=== PATIENT | female | born 1975 | race Caucasian/White ===

== ENCOUNTER 2021-09-15 06:58 | Emergency (ER) | payer OTHER, SELFPAY ==
--- NOTE | ~2021-09-15 | XR_ITS ---
EXAMINATION: XR FINGER, RIGHT CLINICAL INFORMATION: Fourth digit crush injury with laceration. COMPARISON: None TECHNIQUE: 3 views of the right fourth digit. FINDINGS: The bones and soft tissues are normal. No fracture. Alignment is anatomic. Joint spaces are maintained. XR/XR finger RT min 2V IMPRESSION: Unremarkable fourth digit exam.
[2021-09-15 07:00] VITALS: BP 115/70; PULSE 73; RESP 15; TEMP 36.6; BMI 26.9
[2021-09-15] MEDS: Lidocaine HCl 1 % MPF 5 ML VIAL SUBCUT (07:50)
--- NOTE | 2021-09-15 08:17 | ED.EXTPRO ---
HPI - Extremity Problem General Chief complaint: Extremity Injury, Upper Stated complaint: finger injury Time Seen by Provider: 09/15/21 07:10 Source: patient Mode of arrival: ambulatory Limitations: no limitations History of Present Illness MD Complaint: other (crush injury ) Onset (ago): day(s) (1 yesterday AM) Pain Consistency: constant Location: right and upper extremity (4th finger) Quality: aching Radiation: none Relieving factors: nothing Exacerbating factors: palpation Associated symptoms: denies other symptoms Context: other (crush injury in door) Related Data Previous Rx's Medication Instructions Recorded cephalexin 500 mg capsule 500 mg PO TID 7 Days #21 cap 09/15/21 Allergies Allergy/AdvReac Type Severity Reaction Status Date / Time Unable to Assess Allergy Verified 09/15/21 07:22 Review of Systems Review of Systems: Constitutional : No Fever, No Chills, Cardiovascular : No Chest Pain, No SOB Respiratory : No Dyspnea Gastrointestinal : No abdominal pain Musculoskeletal : No Joint Swelling Skin : No rash, positive skin laceration Neuro : No Weakness, No Numbness Psych : No SI/HI PMFSH Past Medical History Attestation statement: The following information was validated with the patient. Medical History (Updated 09/15/21 @ 08:22 by Jeannette Camacho DO) No known health problems Surgical History (Updated 09/15/21 @ 07:03 by Omari Gibson) H/O tubal ligation Social History Social History (Updated 09/15/21 @ 08:22 by Jeannette Camacho DO) Patient Tobacco Use Status: Never used Tobacco Advance Directives: No Patient : No Physical Exam Vital Signs: Vital Signs: Last Vital Signs Temp 98 F 09/15/21 07:00 Pulse 73 09/15/21 07:00 Resp 15 09/15/21 07:00 BP 115/70 09/15/21 07:00 Body Mass Index 26.9 Appearance: Alert. Oriented X3. No acute distress. Eyes: Pupils equal, round and reactive to light. ENT: Pharynx normal. Neck: Normal inspection. CVS: Pulses normal. Respiratory: No respiratory distress. Abdomen: atraumatic Skin: Skin warm and dry. Normal skin color. Extremities: No lower extremity edema. R 4th finger on tip at pad - approximated old appearing avulsion 1cm NV intact distally - no bleeding noted no signs of infection Neuro: Oriented X 3. No motor deficit. No sensory deficit. MDM - Extremity (Nontraumatic) MDM Narrative Medical decision making narrative: 45 yo female crush injury to R 4th finger in door - yesterday AM - at this time wound is closed will obtain xray and covered with dermabond as the area is already approximated at this time, NV intact. given old injury and the flap discussed wound precautions and will start on keflex Procedures Laceration Laceration 1: Site: hand (4th finger) Side (If applicable): right Size (cm): 1 Description: flap Depth: simple, single layer Pre-repair: wound explored Skin layer closed with: other (dermabond) Nerve Block Nerve Block 1: Time out performed: Yes Local Anesthetic: lidocaine 1% Amount of anesthesia used (mL): 3 Side: right Nerve Blocks: digital Procedure Successful: Yes Patient Tolerated Procedure: well and no complications Complications: none Discharge Plan Discharge Clinical Impression: Crush injury, Avulsion of skin Patient Disposition: Home, Self-Care Instructions: Skin Avulsion (ED), Skin Adhesive Care (ED), Crush Injury (ED) Additional Instructions: return to ED for any worsening symptoms or concerns no washing dishes glue will fall off in 5 days monitor for swelling redness yellow drainage Prescriptions: New cephalexin 500 mg capsule 500 mg PO TID 7 Days Qty: 21 RF: 0 Stand Alone Forms: Work/School Release
== END 2021-09-15 08:27 | disposition home or self-care (01) ==
PROVIDERS: Emergency Provider Emergency Medicine; PCP Family Medicine
DX: S61.204A Unspecified open wound of right ring finger without damage to nail, initial encounter (principal); W23.1XXA Caught, crushed, jammed, or pinched between stationary objects, initial encounter; Y93.9 Activity, unspecified; Y92.9 Unspecified place or not applicable; Y99.9 Unspecified external cause status
CPT/HCPCS: 12001; 73140; 99283; 99284

== ENCOUNTER 2022-03-13 14:17 | Outpatient (REF) | payer OTHER, SELFPAY ==
[2022-03-13 14:39] LABS: MANUAL DIFF FLAG NO
[2022-03-13 14:56] LABS: Basophils Absolute Auto 0.1 X10*3/uL (0.0-0.2); Basophils Percent Auto 0.6 % (0-2); Eosinophils Absolute Auto 0.2 X10*3/uL (0.0-0.4); Eosinophils Percent Auto 2.5 % (0-4); Hematocrit 41.3 % (37.0-47.0); Hemoglobin 13.3 g/dl (12.0-16.0); Imm Gran Abs Auto 0.08 X10*3/uL (0.00-0.03); Lymphocytes Absolute Auto 2.3 X10*3/uL (1.2-4.9); Lymphocytes Percent Auto 27.5 % (20-40); Mean Corpuscular HGB Conc 32.2 g/dl (31.0-35.0); Mean Corpuscular Hemoglobin 30.3 pg (27.0-33.0); Mean Corpuscular Volume 94.1 fL (80.0-98.0); Mean Platelet Volume 10.3 fL (9.4-12.3); Monocytes Absolute Auto 0.6 X10*3/uL (0.1-1.2); Monocytes Percent Auto 6.8 % (2-11); Neutrophils Absolute Auto 5.1 x10*3/uL (2.0-8.3); Neutrophils Percent Auto 61.6 % (45-73); Platelet Count 289 X10*3/uL (160-400); Red Blood Count 4.39 X10*6/uL (4.20-5.50); Red Cell Distribution Width 12.2 % (11.0-16.0); White Blood Count 8.3 X10*3/uL (4.8-10.8)
[2022-03-13 15:29] LABS: Alanine Aminotransferase 9 U/L (0-31); Albumin Level 4.1 g/dL (3.5-5.0); Alkaline Phosphatase 48 U/L (39-117); Anion Gap 10 (12-20); Aspartate Amino Transferase 13 U/L (5-31); Bilirubin Total 0.4 mg/dL (0.0-1.0); Blood Urea Nitrogen 7 mg/dL (9-16); Calcium 9.2 mg/dL (8.4-10.2); Carbon Dioxide 27 mmol/L (22-29); Chloride 107 mmol/L (96-108); Cholesterol 148 mg/dL; Estimated Glomerular Filt Rate > 60; Glucose Random 79 mg/dL (60-115); HDL Cholesterol 44 mg/dL; LDL Cholesterol Calculated 97 mg/dl; Potassium 4.5 mmol/L (3.3-5.1); Sodium 139 mmol/L (135-145); Total Protein 6.7 g/dL (6.5-8.0); Triglycerides 38 mg/dL
[2022-03-13 15:42] LABS: Thyroid Stimulating Hormone 0.77 uIU/mL (0.32-4.0)
== END 2022-03-13 14:18 | disposition home or self-care (01) ==
LOC: HO.LAB 14:17
PROVIDERS: PCP Internal Medicine; Visit Provider Internal Medicine
DX: Z00.00 Encounter for general adult medical examination without abnormal findings (principal); F32.9 Major depressive disorder, single episode, unspecified; I83.90 Asymptomatic varicose veins of unspecified lower extremity
CPT/HCPCS: 36415; 80053; 80061; 84443; 85025

== ENCOUNTER → 2022-10-25 10:56 | Outpatient (BNVA) | payer OTHER, SELFPAY | PROVIDERS: PCP Internal Medicine; Visit Provider Surgery Vascular Surgery | DX: Z13.89 Encounter for screening for other disorder (principal) ==

== ENCOUNTER 2022-11-27 09:26 | Outpatient (REF) | payer OTHER, SELFPAY ==
--- NOTE | ~2022-11-27 | US_ITS ---
EXAMINATION: NONINVASIVE ASSESSMENT OF THE ARTERIES OF BOTH LOWER EXTREMITIES WITH PVR EXAM AND BILATERAL LOWER EXTREMITY DUPLEX Nena Cervantes MD CLINICAL INFORMATION: Peripheral arterial disease TECHNIQUE: Ankle pulse volume recordings, ankle pressure measurements and ankle brachial indices were obtained of the lower extremity arterial system bilaterally in addition to duplex Doppler techniques with wave form analysis and measurement of velocities in the common femoral, profunda femoral, superficial femoral, popliteal and tibial arteries. The study was performed only at rest. COMPARISON: None FINDINGS: a) AT REST: RIGHT LE. The right ankle-brachial index is: 1.18 * >0.97-1.25 = normal - no significant arterial disease * 0.75-0.96 = mild peripheral arterial disease * 0.5-0.74 = moderate peripheral arterial disease * <0.50 = severe peripheral arterial disease 2. Right ankle pressure: normal. 3. Right ankle PVR waveform: normal. 4. Right direct duplex Doppler findings: Common femoral artery: 153 cm/s, Multiphasic Profunda femoris artery: 90 cm/s, Multiphasic Superficial femoral artery (proximal): 89 cm/s, Multiphasic Superficial femoral artery (mid): 116 cm/s, Multiphasic Superficial femoral artery (distal): 79 cm/s, Multiphasic Proximal Popliteal artery: 59 cm/s, Multiphasic Mid posterior tibial artery: 56 cm/s, Multiphasic LEFT LE. The left ankle-brachial index is: 1.17 * >0.97-1.25 = normal - no significant arterial disease * 0.75-0.96 = mild peripheral arterial disease * 0.5-0.74 = moderate peripheral arterial disease * <0.50 = severe peripheral arterial disease 2. Left ankle pressure: normal. 3. Left ankle PVR waveform: normal. 4. Left direct duplex Doppler findings: Common femoral artery: 181 cm/s, Multiphasic Profunda femoris artery: 85 cm/s, Multiphasic Superficial femoral artery (proximal): 111 cm/s, Multiphasic Superficial femoral artery (mid): 103 cm/s, Multiphasic Superficial femoral artery (distal): 68 cm/s, Multiphasic Proximal Popliteal artery: 52 cm/s, Multiphasic Mid posterior tibial artery: 45 cm/s, Multiphasic US/US HEATHER complete IMPRESSION: There is no evidence of any hemodynamically significant lower extremity arterial disease by pressure, waveform or duplex Doppler criteria at rest.
--- NOTE | ~2022-11-27 | US_ITS ---
EXAMINATION: NONINVASIVE ASSESSMENT OF THE ARTERIES OF BOTH LOWER EXTREMITIES WITH PVR EXAM AND BILATERAL LOWER EXTREMITY DUPLEX Nena Cervantes MD CLINICAL INFORMATION: Peripheral arterial disease TECHNIQUE: Ankle pulse volume recordings, ankle pressure measurements and ankle brachial indices were obtained of the lower extremity arterial system bilaterally in addition to duplex Doppler techniques with wave form analysis and measurement of velocities in the common femoral, profunda femoral, superficial femoral, popliteal and tibial arteries. The study was performed only at rest. COMPARISON: None FINDINGS: a) AT REST: RIGHT LE. The right ankle-brachial index is: 1.18 * >0.97-1.25 = normal - no significant arterial disease * 0.75-0.96 = mild peripheral arterial disease * 0.5-0.74 = moderate peripheral arterial disease * <0.50 = severe peripheral arterial disease 2. Right ankle pressure: normal. 3. Right ankle PVR waveform: normal. 4. Right direct duplex Doppler findings: Common femoral artery: 153 cm/s, Multiphasic Profunda femoris artery: 90 cm/s, Multiphasic Superficial femoral artery (proximal): 89 cm/s, Multiphasic Superficial femoral artery (mid): 116 cm/s, Multiphasic Superficial femoral artery (distal): 79 cm/s, Multiphasic Proximal Popliteal artery: 59 cm/s, Multiphasic Mid posterior tibial artery: 56 cm/s, Multiphasic LEFT LE. The left ankle-brachial index is: 1.17 * >0.97-1.25 = normal - no significant arterial disease * 0.75-0.96 = mild peripheral arterial disease * 0.5-0.74 = moderate peripheral arterial disease * <0.50 = severe peripheral arterial disease 2. Left ankle pressure: normal. 3. Left ankle PVR waveform: normal. 4. Left direct duplex Doppler findings: Common femoral artery: 181 cm/s, Multiphasic Profunda femoris artery: 85 cm/s, Multiphasic Superficial femoral artery (proximal): 111 cm/s, Multiphasic Superficial femoral artery (mid): 103 cm/s, Multiphasic Superficial femoral artery (distal): 68 cm/s, Multiphasic Proximal Popliteal artery: 52 cm/s, Multiphasic Mid posterior tibial artery: 45 cm/s, Multiphasic US/US arterial duplex LE BI IMPRESSION: There is no evidence of any hemodynamically significant lower extremity arterial disease by pressure, waveform or duplex Doppler criteria at rest.
--- NOTE | ~2022-11-27 | US_ITS ---
EXAMINATION: US LOWER EXTREMITY VENOUS (REFLUX EXAM), BILATERAL CLINICAL INDICATION: Varicose veins COMPARISON: None. TECHNIQUE: Color flow triplex imaging and compression Doppler was performed to evaluate both the deep and the superficial systems bilaterally. To evaluate the superficial system, the examination was performed in the upright position. Color-flow Doppler ultrasound and compression ultrasound were utilized. In addition, maneuvers were utilized to demonstrate reflux. FINDINGS: 1. DEEP VENOUS ULTRASOUND OF THE RIGHT LOWER EXTREMITY: Common Femoral Vein: Compressible, normal respiratory variation and augmented flow. Femoral Vein: Compressible, normal color flow and augmentation. Popliteal Vein: Compressible, normal augmentation. Deep Reflux: There is no evidence of reflux in the deep system in either the common femoral vein or the popliteal vein. There is no evidence of a Aj's cyst. 2. SUPERFICIAL ULTRASOUND WITH DOPPLER OF RIGHT LOWER EXTREMITY: GREAT SAPHENOUS VEIN: Saphenofemoral Junction: 0.7 cm; Reflux: 0 ms Proximal Thigh: 0.5 cm; Reflux: 0 ms Mid Thigh: 0.2 cm; Reflux: 0 ms Above Knee: 0.2 cm; Reflux: 0 ms At Knee: 0.3 cm; Reflux: 0 ms Below Knee: 0.2 cm; Reflux: 0 ms Mid Calf: 0.2 cm; Reflux: 0 ms Ankle: 0.3 cm; Reflux: 0 ms DUPLICATED MEDIAL GREAT SAPHENOUS VEIN: Diameter: None Imaged Reflux: NA DUPLICATED LATERAL GREAT SAPHENOUS VEIN: Proximal: 0.3 cm; Reflux: 0 ms Distal: 0.2 cm; Reflux: 0 ms SMALL SAPHENOUS VEIN: Proximal: 0.2 cm; Reflux: 0 ms Distal: 0.2 cm; Reflux: 0 ms VEIN OF GIACOMINI: None Imaged. PERFORATORS: Location: Right great saphenous vein mid thigh Size: 0.2 cm Reflux: NA VARICOSITIES: Location: Right anterior calf Size: 0.2 cm Reflux: 836 ms 3. DEEP VENOUS ULTRASOUND OF THE LEFT LOWER EXTREMITY: Common Femoral Vein: Compressible, normal respiratory variation and augmented flow. Femoral Vein: Compressible, normal color flow and augmentation. Popliteal Vein: Compressible, normal augmentation. Deep Reflux: There is no evidence of reflux in the deep system in either the common femoral vein or the popliteal vein. There is no evidence of a Aj's cyst. 4. SUPERFICIAL ULTRASOUND WITH DOPPLER OF LEFT LOWER EXTREMITY: GREAT SAPHENOUS VEIN: Saphenofemoral Junction: 0.7 cm; Reflux: 0 ms Proximal Thigh: 0.4 cm; Reflux: 0 ms Mid Thigh: 0.2 cm; Reflux: 0 ms Above Knee: 0.3 cm; Reflux: 0 ms At Knee: 0.3 cm; Reflux: 546 ms Below Knee: 0.2 cm; Reflux: 0 ms Mid Calf: 0.2 cm; Reflux: 0 ms Ankle: 0.2 cm; Reflux: 0 ms DUPLICATED MEDIAL GREAT SAPHENOUS VEIN: Diameter: None Imaged Reflux: NA DUPLICATED LATERAL GREAT SAPHENOUS VEIN: Proximal: 0.6 cm; Reflux: 0 ms Distal: 0.3 cm; Reflux: 0 ms SMALL SAPHENOUS VEIN: Diameter: None Imaged Reflux: NA VEIN OF GIACOMINI: None Imaged. PERFORATORS: Location: Left great saphenous vein in the proximal and distal calf Size: 0.2-0.3 cm Reflux: NA VARICOSITIES: Location: Left great saphenous vein at the knee Size: 0.3 cm Reflux: NA US/US venous duplex LE BI IMPRESSION: 1. No DVT in the bilateral lower extremity. 2. No reflux in the bilateral great saphenous veins. 3. Bilateral refluxing varicosities.
== END 2022-11-27 09:27 | disposition home or self-care (01) ==
LOC: HO.US 09:26
PROVIDERS: PCP Internal Medicine; Visit Provider Surgery Vascular Surgery
DX: I83.11 Varicose veins of right lower extremity with inflammation (principal); I83.893 Varicose veins of bilateral lower extremities with other complications; I70.213 Atherosclerosis of native arteries of extremities with intermittent claudication, bilateral legs
CPT/HCPCS: 93923; 93925; 93970

== ENCOUNTER → 2022-12-04 15:37 | Outpatient (BNVA) | payer OTHER, SELFPAY | PROVIDERS: PCP Internal Medicine; Visit Provider Surgery Vascular Surgery | DX: Z13.89 Encounter for screening for other disorder (principal) ==

== ENCOUNTER 2023-04-04 10:53 | Outpatient (REF) | payer OTHER, SELFPAY ==
[2023-04-04 11:05] LABS: MANUAL DIFF FLAG NO
[2023-04-04 11:37] LABS: Basophils Absolute Auto 0.1 X10*3/uL (0.0-0.2); Basophils Percent Auto 0.8 % (0-2); Eosinophils Absolute Auto 0.1 X10*3/uL (0.0-0.4); Eosinophils Percent Auto 1.6 % (0-4); Hemoglobin 13.9 g/dl (12.0-16.0); Imm Gran Pct Auto 1.2 % (0.0-0.4); Lymphocytes Absolute Auto 2.2 X10*3/uL (1.2-4.9); Lymphocytes Percent Auto 26.6 % (20-40); Mean Corpuscular HGB Conc 33.1 g/dl (31.0-35.0); Mean Corpuscular Volume 93.8 fL (80.0-98.0); Mean Platelet Volume 10.5 fL (9.4-12.3); Monocytes Absolute Auto 0.6 X10*3/uL (0.1-1.2); Neutrophils Absolute Auto 5.2 x10*3/uL (2.0-8.3); Neutrophils Percent Auto 62.8 % (45-73); Platelet Count 338 X10*3/uL (160-400); Red Blood Count 4.48 X10*6/uL (4.20-5.50); Red Cell Distribution Width 12.2 % (11.0-16.0); White Blood Count 8.3 X10*3/uL (4.8-10.8)
[2023-04-04 12:01] LABS: Alanine Aminotransferase 8 U/L (0-31); Albumin Level 4.1 g/dL (3.5-5.0); Alkaline Phosphatase 48 U/L (39-117); Anion Gap 10 (12-20); Aspartate Amino Transferase 13 U/L (5-31); Bilirubin Total 0.5 mg/dL (0.0-1.0); Blood Urea Nitrogen 9 mg/dL (9-16); Calcium 9.2 mg/dL (8.4-10.2); Carbon Dioxide 27 mmol/L (22-29); Chloride 107 mmol/L (96-108); Cholesterol 157 mg/dL; Estimated Glomerular Filt Rate > 60; Glucose Random 85 mg/dL (60-115); HDL Cholesterol 46 mg/dL; LDL Cholesterol Calculated 103 mg/dl; Potassium 4.1 mmol/L (3.3-5.1); Sodium 140 mmol/L (135-145); Total Protein 6.9 g/dL (6.5-8.0); Triglycerides 41 mg/dL
== END 2023-04-04 10:54 | disposition home or self-care (01) ==
LOC: HO.LAB 10:53
PROVIDERS: PCP Internal Medicine; Visit Provider Internal Medicine
DX: Z00.00 Encounter for general adult medical examination without abnormal findings (principal); M70.61 Trochanteric bursitis, right hip; K52.9 Noninfective gastroenteritis and colitis, unspecified; K21.9 Gastro-esophageal reflux disease without esophagitis; I83.813 Varicose veins of bilateral lower extremities with pain; E78.00 Pure hypercholesterolemia, unspecified
CPT/HCPCS: 36415; 80053; 80061; 85025

== ENCOUNTER 2023-05-29 08:27 | Outpatient (REF) | payer OTHER, SELFPAY ==
--- NOTE | ~2023-05-29 | MM_ITS ---
EXAMINATION: MM SCREENING DIGITAL BREAST TOMOSYNTHESIS, BILATERAL CLINICAL INFORMATION: Screening. Asymptomatic. The lifetime risk of breast cancer based on the Tyrer-Cuzick Model is 7.1%. COMPARISON: Mammography: None. Baseline exam. TECHNIQUE: Digital breast tomosynthesis is performed in both the craniocaudal and mediolateral oblique views along with computer-aided detection (CAD). Synthesized 2D images are generated from the tomosynthesis. FINDINGS: The breasts are heterogeneously dense, which may obscure small masses (ACR BI-RADS breast composition Category c). There are oval intramammary lymph nodes in the medial outer bilateral breasts. These are benign. In the left breast, there is a focal asymmetry in the central upper breast, middle one third, for which spot compression views are recommended In the right breast, there is a small 1 view asymmetry in the central right breast seen on the cc view only, with no definite MLO correlate. This is likely superimposition artifact of normal tissue. Spot 3-D compression view in the CC projection recommended, with a full-field right ML 3-D view for further evaluation. No additional suspicious abnormalities in either breast. MM/MM tomosynthesis screening BI IMPRESSION: Left breast focal asymmetry central upper breast, middle one third, for which spot compression views are recommended. Right breast, one view asymmetry central right breast on the CC projection, with no MLO correlate. Recommend diagnostic views to include spot 3-D compression view in the CC projection recommended, with a full-field right ML 3-D view for further evaluation. Targeted ultrasounds of either breast advise as per the interpreting radiologist. ASSESSMENT: BI-RADS BI-RADS 0 - Incomplete: Needs additional Imaging. RECOMMENDATION: 1. Additional views of the bilateral breasts 2. Targeted ultrasound if warranted after review of the additional views. 3. Radiology department staff will contact the patient for additional imaging. Additional Imaging required This examination should not preclude the clinical evaluation of a suspicious palpable abnormality.
== END 2023-05-29 08:28 | disposition home or self-care (01) ==
LOC: HO.MAMMO 08:27
PROVIDERS: PCP Internal Medicine; Visit Provider Internal Medicine
DX: Z12.31 Encounter for screening mammogram for malignant neoplasm of breast (principal)
CPT/HCPCS: 77063; 77067

== ENCOUNTER → 2023-05-29 08:30 | Outpatient (BNV) | payer OTHER, SELFPAY | PROVIDERS: PCP Internal Medicine; Visit Provider Radiology Diagnostic Radiology | DX: Z12.31 Encounter for screening mammogram for malignant neoplasm of breast (principal) | CPT/HCPCS: 77063; 77067 ==

== ENCOUNTER 2023-07-10 09:06 | Outpatient (REF) | payer OTHER, SELFPAY ==
--- NOTE | ~2023-07-10 | US_ITS ---
EXAMINATION: MM DIAGNOSTIC DIGITAL BREAST TOMOSYNTHESIS, BILATERAL US BREAST LIMITED, BILATERAL MAMMOGRAPHY: CLINICAL INFORMATION: Follow-up diagnostic exam for focal asymmetry central upper outer left breast, middle one third, and small 1 view asymmetry central right breast seen on CC view only, with no MLO correlate. COMPARISON: Mammography: Baseline screening examination 05/29/2023. TECHNIQUE: Digital bilateral breast tomosynthesis is performed involving right full Field 3-D mediolateral view, 3-D spot compression right CC and MLO views, as well as 3-D left spot compression CC and MLO views, along with computer-aided detection (CAD). Synthesized 2D images are generated from the tomosynthesis. FINDINGS: The breasts are heterogeneously dense, which may obscure small masses (ACR BI-RADS breast composition Category c). RIGHT BREAST: Spot compression view right CC demonstrates a persistent low density 5 mm oval mass, circumscribed, approximately 6 cm from the nipple, without definitive correlate on MLO or ML tomographic views. This will be investigated with ultrasound. No additional suspicious findings right breast. LEFT BREAST: The upper outer left breast focal asymmetry does not persist and dissipates well on spot compression views, consistent with superimposition artifact of normal overlapping glandular tissue. There are no suspicious persistent abnormalities in the left breast. ULTRASOUND: CLINICAL INFORMATION: Evaluate bilateral asymmetric densities as detailed. COMPARISON: Diagnostic mammography dated concurrently, an Baseline screening mammography 05/29/2023. No prior ultrasound. TECHNIQUE: Targeted sonographic evaluation was performed using a high frequency linear transducer. The right breast was scanned spanning the 10:00 to 2:00 axes. The left breast was scanned in the upper outer quadrant. Selected archived documentation. FINDINGS: RIGHT BREAST: There is a mixture of fatty and fibroglandular tissue. No suspicious mass is seen. There is no pathologic acoustic shadowing. There is a small simple cyst in the 12:00 axis, 6 cm from the nipple, measuring 4 x 5 x 2 mm, which correlates well with the abnormality seen on mammography. This is benign. LEFT BREAST: There is a mixture of fatty and fibroglandular tissue. No suspicious mass is seen. There is no pathologic acoustic shadowing. There are no cystic abnormalities. There is no correlate to the asymmetric density seen on mammography in the upper outer quadrant. US/US breast BI limited mamm only IMPRESSION: Benign findings right breast. No abnormality left breast. No findings suspicious for malignancy in either breast. Recommend the patient resume routine annual screening. OVERALL ASSESSMENT: Mammography: BI-RADS 2 - Benign Findings Ultrasound: BI-RADS 2 - Benign Findings RECOMMENDATION: 1 year F/U This patient's information was entered into a reminder system with a target due date for their next mammogram.
== END 2023-07-10 09:07 | disposition home or self-care (01) ==
LOC: HO.MAMMO 09:06
PROVIDERS: PCP Internal Medicine; Visit Provider Internal Medicine
DX: N64.89 Other specified disorders of breast (principal)
CPT/HCPCS: 76642; 77062; 77066

== ENCOUNTER 2023-08-31 07:26 | Outpatient (REF) | payer OTHER, SELFPAY ==
[2023-09-02 12:53] LABS: Immunoglobulin A 94 mg/dL (47-310)
[2023-09-03 13:18] LABS: Gliadin Deamidated IgA Ab <1.0 U/mL; Gliadin Deamidated IgG Ab <1.0 U/mL; Transglutaminase Ab IgG <1.0 U/mL; Transglutaminase IgA <1.0 U/mL
[2023-09-05 12:18] LABS: Endomysial IgA Antibody Negative (Negative)
== END 2023-08-31 07:27 | disposition home or self-care (01) ==
LOC: HO.LAB 07:26
PROVIDERS: PCP Internal Medicine; Visit Provider Internal Medicine
DX: K58.0 Irritable bowel syndrome with diarrhea (principal)
CPT/HCPCS: 36415; 82784; 86231; 86258; 86364

== ENCOUNTER 2023-10-03 07:58 | Outpatient (REF) | payer OTHER, SELFPAY ==
--- NOTE | ~2023-10-03 | US_ITS ---
EXAMINATION: US ABDOMEN COMPLETE CLINICAL INFORMATION: Abdominal pain. COMPARISON: None available. TECHNIQUE: Real-time imaging of the abdominal viscera. FINDINGS: PANCREAS: Unremarkable. ABDOMINAL AORTA: The proximal, mid, and distal segments are normal in caliber. INFERIOR VENA CAVA: Visualized portions are normal. LIVER: Normal. The liver is normal in size. The liver contour is normal. Parenchymal echogenicity is normal. No focal hepatic lesion. There is no intrahepatic biliary duct dilatation seen. GALLBLADDER: Normal. The gallbladder is physiologically distended without evidence of stones, sludge, polyps, wall thickening or pericholecystic fluid. COMMON BILE DUCT: Normal in caliber measuring 0.7 cm in diameter. RIGHT KIDNEY: No hydronephrosis. No renal calculi or focal parenchymal lesions. The kidney measures 11.0 cm in maximum dimension. Incidentally noted extrarenal pelvis. LEFT KIDNEY: Normal. No hydronephrosis. No renal calculi or focal parenchymal lesions. The kidney measures 12.1 cm in maximum dimension. SPLEEN: Normal. The spleen measures 9.8 cm in maximum dimension. FREE FLUID: None. US/US abdomen complete IMPRESSION: No findings to explain symptoms of abdominal pain. No cholelithiasis or evidence of acute cholecystitis.
== END 2023-10-03 07:59 | disposition home or self-care (01) ==
LOC: HO.US 07:58
PROVIDERS: PCP Internal Medicine; Visit Provider Internal Medicine
DX: R10.84 Generalized abdominal pain (principal)
CPT/HCPCS: 76700

== ENCOUNTER 2023-11-21 12:32 | Day surgery (SDC) | payer OTHER, SELFPAY ==
[2023-11-13 14:47] VITALS: BMI 30.1
[2023-11-21 12:56] VITALS: BMI 30.4
[2023-11-21 13:07] VITALS: BP 102/64; PULSE 77; RESP 15; TEMP 37.1; O2SAT 95
--- NOTE | 2023-11-21 13:11 | HO.ANESPROP2 ---
HPI - Anesthesia Eval Consult details Narrative: 48 yo female patient for EGD, Colonoscopy [facility] Active Problems Active Problems: All Active Problems (Updated 11/21/23 @ 13:12 by Cecilia Johnson MD) PAD (peripheral artery disease) (Acute) Varicose veins of right lower extremity with inflammation (Acute) H/o headache, numbness left side, balance, gait issues about a month ago. W/u non-revealing. Still awaiting visit with neurology. Symptoms have since resolved Past Medical History Medical History Neurological symptoms PAD (peripheral artery disease) GERD (gastroesophageal reflux disease) Renal calculi Family History Family history of problems with anesthesia: No Surgical History Surgical History History of tonsillectomy and adenoidectomy History of pubovaginal sling H/O tubal ligation History of Problems with Anesthesia: No Social History Social History Patient Tobacco Use Status: Former Tobacco user Quit Date: 2001 Use of substances other than those prescribed or required for medical reasons: No Are you DNR?: No Advance Directives: No Advance Directives Information Provided: Yes Meds Allergies Allergy/AdvReac Type Severity Reaction Status Date / Time Iodinated Contrast Media Allergy Mild Itching Verified 11/21/23 12:54 [IV Contrast Dye] Active Medications: Current Medications Sodium Biphosphate/Sodium Phosphate (Sodium Phosphate,[place]-Dibasic 133 Ml Enema) 133 ml [place] ONCE PRN PRN Reason: Poor Colonoscopy Prep Results Home Medications Medication Instructions Recorded Confirmed Last Taken Type No Known Home Meds 11/21/23 11/21/23 Unknown History Exam Height,Weight and Vital Signs: Height 5 ft 5 in Weight 83.007 kg Vital Signs Temp Pulse Resp BP Pulse Ox O2 Del Method 11/21/23 13:07 98.7 F 77 15 102/64 95 Room Air Airway Mallampati Class: III (Small mouth) TM Dist: >3cm Neck ROM: Full Loose/Missing/Broken Teeth: No (Denies broken, loose, missing teeth) Heart: RRR Lungs: CTAB Assessment and Plan Assessment Anesthesia Assessment: Anesthesia Plan Discussed and Chart Reviewed Final Anesthetic Review Family History of Problems with Anesthesia: No History of Problems with Anesthesia: No NPO: Yes ASA Class: III Final Preanesthetic Review: No Changes in Pt Med Stat, Meds/Allgs Chart Reviewed, Consent Obtained/Reviewed and Anes Risks/Benef Reviewed Patient Risk: Intermediate Procedure Risk: Low Assessment/Block/Sedation in SS: Assess/Block/Sedation-SS Anesthetic Plan Anesthetic Plan: MAC: Disposition: Standard PACU
[2023-11-21] MEDS: Lactated Ringers 1,000 ML 100 ML IVCONT (13:14)
[2023-11-21 14:58] VITALS: BP 102/63; PULSE 79; RESP 16; TEMP 36.1; O2SAT 96
--- NOTE | 2023-11-21 15:10 | PM.OP ---
Brief Operative Note Date of Service: 11/21/23 Pre-op diagnosis: GERD, Screening Post-op diagnosis: other (Hiatal hernia, R/O celiac disease, Diverticulosis) Procedure: EGD with biopsies, Colonoscopy to the cecum with biopsies Surgeon: Santiago Clifford MD Anesthesia: MAC Was an Clinical Services Assistant used for this Procedure?: No Estimated blood loss (mL): 2.0 Pathology: other (A. Descending duodenum B. Gastric antrum C. EG Junction at 36cm D. Ascending colon E. Descending colon) Condition: stable Disposition: PACU
[2023-11-21 15:13] VITALS: BP 111/76; PULSE 81; RESP 14; TEMP 36.3; O2SAT 99
--- NOTE | 2023-11-22 11:58 | OP_ITS ---
DATE OF SERVICE: 11/21/2023 SURGEON: Santiago Clifford MD INDICATIONS: The patient presents for evaluation of gastroesophageal reflux, abdominal discomfort, irregular bowel movements, and colorectal cancer screening. Full consent has been obtained from her for this, including risks of bleeding and perforation. PREOPERATIVE DIAGNOSIS: POSTOPERATIVE DIAGNOSIS: PROCEDURE PERFORMED: Esophagogastroduodenoscopy with biopsies, and colonoscopy to the cecum with biopsies. ESTIMATED BLOOD LOSS: COMPLICATIONS: ANESTHESIA: Monitored anesthesia care. ASSISTANTS: SPECIMENS: PREOPERATIVE DIAGNOSES: Gastroesophageal reflux, abdominal discomfort, colorectal cancer screening, and irregular bowel movements. POSTOPERATIVE DIAGNOSES: Gastroesophageal reflux, abdominal discomfort, colorectal cancer screening, and irregular bowel movements, hiatal hernia, mild gastritis, rule out celiac disease, rule out microscopic colitis, mild diverticulosis, small internal hemorrhoids. DESCRIPTION OF PROCEDURE: The patient was placed in the left lateral decubitus position. The Olympus video gastroscope was passed in the posterior oropharynx and upper esophagus under direct vision. The scope was passed slowly into the distal esophagus. The gastroesophageal junction appeared at 36 cm. There was no evidence of any esophagitis nor any definitive Abebe esophagus. There was some very minimal irregularity. The scope entered the stomach. There was a small hiatal hernia. The scope was advanced to the pylorus, and the duodenum was cannulated to the descending portion. The duodenum including the bulb appeared normal, without any sign of mass or ulceration. Biopsies were obtained from the 2nd and 3rd portions of duodenum. The scope was withdrawn back in the stomach. The gastric antrum had some mild areas of erythema and edema, but no erosions or ulceration there was good peristalsis. The scope was retroflexed visualizing the proximal stomach carefully, which appeared normal, without any sign of mass or ulceration. The scope was straightened. Biopsies were obtained from the gastric antrum. The scope was withdrawn back to the esophagus. Biopsies were obtained at the EG junction at 36 cm. Proximal to this, the esophageal mucosa appeared normal. The scope was withdrawn from the patient. She was turned around for the colonoscopy. The digital rectal exam revealed no abnormalities. The Olympus video pediatric colonoscope was entered into the rectum and advanced easily to the cecum. Once in the cecum, I did identify normal-appearing cecal pouch with appendiceal orifice and a normal-appearing ileocecal valve. The entire cecum and ileocecal valve appeared normal. The scope was slowly withdrawn assessing all mucosal surfaces carefully. Preparation was excellent. I did not visualize any sign of polyps, colitis, nor angiodysplasia. There was occasional diverticula in the ascending colon and sigmoid colon. I did obtain random biopsies in the ascending and descending colon to rule out microscopic colitis. In the rectum, scope was retroflexed visualizing internal hemorrhoids but no other pathology. The rectal mucosa appeared normal. The scope was straightened and withdrawn from the patient. She tolerated both procedures well and was returned to the recovery area in stable condition. IMPRESSION: 1. Hiatal hernia. 2. Mild gastritis. 3. Rule out celiac disease. 4. Rule out microscopic colitis. 5. Mild diverticulosis. 6. Internal hemorrhoids. PLAN: The results of the biopsies will be checked. I would recommend a repeat colonoscopy in 10 years for further screening purposes. She was advised to not use any aspirin or NSAIDs for at least a week. She was advised to continue omeprazole for reflux and heartburn symptoms either daily or as needed. She was also advised to use dicyclomine as needed for any irritable bowel syndrome symptoms such as abdominal cramps, bloating or discomfort. She was again reminded to stay on a healthy diet, minimize caffeine, and eliminate fast food. She will be seen in followup. MD MALISSA Wilson/CATARINA / [id number]
== END 2023-11-21 15:19 | disposition home or self-care (01) ==
PROVIDERS: PCP Internal Medicine; Visit Provider Internal Medicine
PROC: (CPT 43239; principal; 2023-11-21 13:30)
DX: K29.60 Other gastritis without bleeding (principal); K44.9 Diaphragmatic hernia without obstruction or gangrene; K21.9 Gastro-esophageal reflux disease without esophagitis; Z12.11 Encounter for screening for malignant neoplasm of colon; K57.30 Diverticulosis of large intestine without perforation or abscess without bleeding; K64.8 Other hemorrhoids
CPT/HCPCS: 43239; 45380; 88305; 88313; 88342; J2250; J2704